=== PATIENT | male | born 1995 | race Caucasian/White ===

== ENCOUNTER 2024-06-07 21:29 | Emergency (ER) | payer SELFPAY ==
[~2024-06-07] VITALS: Ht 182.9 cm; Wt 87.0 kg
[2024-06-07 21:39] VITALS: TEMP 98.6; O2SAT 99
[2024-06-07] MEDS ORDERED: METH-653 MT (22:33)
[2024-06-07] MEDS ORDERED: IBUP-2029 MT (22:33)
[2024-06-07] MEDS: METHOCARBAMOL 500MG TABLET PO ONE (23:02)
[2024-06-07 23:04] VITALS: O2SAT 99
[2024-06-07 23:05] VITALS: BP 112/70; PULSE 60; RESP 18
[2024-06-07] MEDS: KETOROLAC 30MG/ML VIAL IM ONE (23:05)
== END 2024-06-07 23:05 | disposition home or self-care (01) ==
LOC: ER 21:29
DX: S33.5XXA Sprain of ligaments of lumbar spine, initial encounter (principal); S09.90XA Unspecified injury of head, initial encounter; V49.49XA Driver injured in collision with other motor vehicles in traffic accident, initial encounter; Y93.89 Activity, other specified; Y92.89 Other specified places as the place of occurrence of the external cause; Y99.8 Other external cause status
CPT/HCPCS: 99283; 96372; J1885